=== PATIENT | female | born 1985 | race Caucasian/White ===

== ENCOUNTER 2016-12-13 00:39 | Emergency (ER) | payer OTHER ==
[~2016-12-13] VITALS: Ht 172.7 cm; Wt 71.7 kg
[2016-12-13] MEDS ORDERED: BC PILL (00:50)
--- NOTE | 2016-12-13 00:50 | NUR ---
Patient brought in by rescue from home for c/o N/V [id number]. Denies abdominal pain. No other distress noted
--- NOTE | 2016-12-13 03:00 | NUR ---
Patient states "I feel better now. I want to go home now."
--- NOTE | 2016-12-13 03:08 | NUR ---
IV removed. Catheter intact and site benign. Pressure and 4x4 gauze applied to site. No bleeding noted.
--- NOTE | 2016-12-13 03:15 | NUR ---
Patient discharged to home in stable conditon with friend taking patient home. Written and verbal after care instructions given. Patient verbalizes understanding of instructions.
[2016-12-13 03:16] VITALS: BP 111/68
== END 2016-12-13 03:17 | disposition home or self-care (01) ==
LOC: ER 00:39
DX: G43.A0 Cyclical vomiting, in migraine, not intractable (principal); Z88.0 Allergy status to penicillin
CPT/HCPCS: 36415; 84703; A4663; C9113; J1200; J2405; J2765; J7030

== ENCOUNTER 2017-01-04 10:18 | Emergency (ER) | payer OTHER ==
[~2017-01-04] VITALS: Ht 172.7 cm; Wt 72.6 kg
[~2017-01-04 10:18] MED LIST: BC PILL
[2017-01-04] MEDS ORDERED: KETOROLAC TROMETHAMINE 15 MG INJ IV ONE (10:45)
[2017-01-04] MEDS ORDERED: METOCLOPRAMIDE HCL 10 MG/2 ML VIAL IV ONE (10:45)
[2017-01-04] MEDS ORDERED: FAMOTIDINE. 20 MG/2 ML VIAL IV ONE ×2 (10:45→10:57)
[2017-01-04] MEDS ORDERED: IV NORMAL SALINE 1000 ML BAG IV ONE (10:45)
[2017-01-04] MEDS ORDERED: KETOROLAC TROMETHAMINE 15 MG INJ ONE (10:56)
[2017-01-04] MEDS ORDERED: METOCLOPRAMIDE HCL 10 MG/2 ML VIAL ONE (10:57)
[2017-01-04 11:07] LABS: BASOPHILS % (AUTO) 0.2 % (0.0-2.0); EOSINOPHILS % (AUTO) 0.3 % (0.0-7.0); HEMATOCRIT 43.1 % (31.2-41.9); HEMOGLOBIN 14.8 g/dL (10.9-14.3); LYMPHOCYTES # (AUTO) 2.7 K/uL (20.0-40.0); LYMPHOCYTES % (AUTO) 19.4 % (20.5-51.5); MEAN CORPUSCULAR HEMOGLOBIN 30.5 uug (24.7-32.8); MEAN CORPUSCULAR HGB CONC 35 g/dL (32.3-35.6); MEAN CORPUSCULAR VOLUME 88.6 fL (75.5-95.3); MONOCYTES # (AUTO) 0.1 K/uL (2.0-10.0); MONOCYTES % (AUTO) 1.1 % (0.0-11.0); NEUTROPHILS # (AUTO) 11.1 K/uL (1.8-8.9); PLATELET COUNT (AUTO) 336 K/uL (179-408); RED BLOOD CELL COUNT(AUTO) 4.86 MIL/uL (3.63-4.92)
--- NOTE | 2017-01-04 11:09 | NUR ---
RECEIVED PT FROM DG Mohr. PT IS AT BEDSIDE. IVF INFUSING VIA RIGHT AC ORDERED BY MD. PT IS ACCOMPANIED BY SIGNIFICANT OTHER AT BEDSIDE. PT IS RESTING BUT HAVE COMPLAINTS OF NAUSEA AT THIS TIME. MD VARGAS NOTIFIED AND IS AWARE. WCTM PT AT THIS TIME. WAITING FOR FURTHER PLAN OF CARE
[2017-01-04 11:12] LABS: POTASSIUM 4.1 mmol/L (3.5-5.1)
[2017-01-04] MEDS ORDERED: ONDANSETRON IV *ER 4 MG/2 ML VIAL IV ONE (11:15)
[2017-01-04 11:17] LABS: BILIRUBIN,DIRECT 0.1 mg/dL (0.0-0.2); BILIRUBIN,TOTAL 0.7 mg/dL (0.2-1.0); TOTAL PROTEIN, SERUM 7.9 g/dL (6.4-8.2)
[2017-01-04] MEDS ORDERED: ONDANSETRON 4 MG/2 ML VIAL ONE (11:33)
--- NOTE | 2017-01-04 12:24 | NUR ---
Patient discharged to home in stable conditon. Written and verbal after care instructions given. Patient verbalizes understanding of instructions. IV access have been D/C. ID Band have been removed. No further questions or concerns noted prior on leaving the ED.
[2017-01-04 12:25] VITALS: BP 108/69
== END 2017-01-04 12:26 | disposition home or self-care (01) ==
LOC: ER 10:18
DX: G43.A0 Cyclical vomiting, in migraine, not intractable (principal); F95.2 Tourette's disorder; I73.00 Raynaud's syndrome without gangrene; Z88.0 Allergy status to penicillin
CPT/HCPCS: 36415; 83690; 84703; 85025; A4663; J1885; J2405; J2765; J3490; J7030